=== PATIENT | male | born 1990 ===

== ENCOUNTER 2017-11-27 07:34 | Outpatient (CLI) | payer OTHER ==
[~2017-11-27] VITALS: Ht 175.3 cm; Wt 74.8 kg
== END 2017-11-27 07:50 | disposition home or self-care (01) ==
LOC: OFIC 805 07:34
DX: R22.1 Localized swelling, mass and lump, neck (principal); J35.1 Hypertrophy of tonsils; M54.2 Cervicalgia; K21.0 Gastro-esophageal reflux disease with esophagitis

== ENCOUNTER 2019-03-18 08:28 | Outpatient (CLI) | payer OTHER ==
[~2019-03-18] VITALS: Ht 152.4 cm; Wt 78.5 kg
== END 2019-03-18 08:45 | disposition home or self-care (01) ==
LOC: OFIC 805 08:28
DX: J34.3 Hypertrophy of nasal turbinates (principal); R68.2 Dry mouth, unspecified; R09.81 Nasal congestion